=== PATIENT | female | born 1985 | race Caucasian/White ===

== ENCOUNTER 2023-06-15 14:53 | Emergency (ER) | payer MEDICAID ==
[~2023-06-15] VITALS: Ht 152.4 cm; Wt 72.6 kg
[2023-06-15 15:50] LABS: URINE HCG NEGATIVE (NEG)
[2023-06-15 15:51] LABS: BILIRUBIN,URINE SMALL (Neg); CLARITY,URINE CLOUDY (Clear); COLOR,URINE YELLOW (Yellow); GLUCOSE, URINE NEGATIVE (Neg); KETONES,URINE >=80 mg/dl (Neg); LEUKOCYTE ESTERASE ,URINE MODERATE (Neg); NITRITES, URINE NEGATIVE (Neg); OCCULT BLOOD,URINE NEGATIVE (Neg); PH,URINE 6.5 (4.8-8.0); PROTEIN,URINE NEGATIVE (Neg)
[2023-06-15 15:53] LABS: UA COLLECTION TYPE CLN CATCH MIDSTREAM
[2023-06-15 16:02] LABS: URINE AMPHETAMINE SCREEN NEGATIVE (Neg); URINE BARBITUATE SCREEN NEGATIVE (Neg); URINE BENZODIAZEPINES SCREEN NEGATIVE (Neg); URINE CANNABINOID SCREEN NEGATIVE (Neg); URINE COCAINE SCREEN NEGATIVE (Neg); URINE METHADONE SCREEN NEGATIVE (Neg); URINE OPIATE SCREEN NEGATIVE (Neg); URINE PHENCYCLIDINE SCREEN NEGATIVE (Neg)
[2023-06-15 16:05] LABS: SQUAMOUS EPITHELIAL CELL,UR MANY /LPF (FEW)
[2023-06-15 16:06] LABS: MUCUS STRANDS MODERATE /LPF (Neg)
[2023-06-15 16:08] LABS: BACTERIA,URINE 1+ /HPF (Neg); RBC,URINE 0-2 /HPF (0-2)
[2023-06-15 16:10] LABS: YEAST FEW /HPF (NEGATIVE)
[2023-06-15 16:23] LABS: BASOPHILS # (AUTO) 0.1 X10'3 (0-0.2); BASOPHILS % (AUTO) 1.2 % (0-1); EOSINOPHILS # (AUTO) 0.1 X10'3 (0-0.9); EOSINOPHILS % (AUTO) 0.6 % (0-6); HEMATOCRIT 45.2 % (35.0-45.0); HEMOGLOBIN 15.5 g/dl (12.0-16.0); LYMPHOCYTES # (AUTO) 1.9 X10'3 (1.1-4.8); LYMPHOCYTES % (AUTO) 18.7 % (21-51); MEAN CORPUSCULAR HEMOGLOBIN 32.1 PG (27.0-31.0); MEAN CORPUSCULAR HGB CONC 34.2 g/dL (33.0-36.5); MEAN CORPUSCULAR VOLUME 93.7 FL (78-98); MEAN PLATELET VOLUME 7.8 FL (7.4-10.4); MONOCYTES # (AUTO) 0.7 X10'3 (0-0.9); MONOCYTES % (AUTO) 6.5 % (2-12); NEUTROPHILS # (AUTO) 7.5 X10'3 (1.8-7.7); PLATELET COUNT 319 X10'3 (140-440); RED BLOOD COUNT 4.83 X10'6 (4.20-5.60); RED CELL DISTRIBUTION WIDTH 13.1 % (11.5-14.5); WHITE BLOOD COUNT 10.3 X10'3 (4.5-11.0)
[2023-06-15 16:46] LABS: ALBUMIN 4.1 G/DL (3.4-5.0); ANION GAP 10 (8-16); BLOOD UREA NITROGEN 9 MG/DL (7-18); BUN/CREATININE RATIO 11.7 (10.0-20.0); CHLORIDE 104 MMOL/L (99-107); CREATININE 0.77 MG/DL (0.40-0.90); ETHANOL < 10 MG/DL (<10); FREE T4 (FREE THYROXINE) 1.14 NG/DL (0.73-1.40); GLUCOSE 85 MG/DL (70-104); POTASSIUM 3.9 MMOL/L (3.5-5.1); SODIUM 139 MMOL/L (135-145); THYROID STIMULATING HORMONE 4.69 ulU/ml (0.34-4.50); TOTAL CARBON DIOXIDE 24.6 MMOL/L (24-32); eCRCL 70 ML/MIN; eGFR 83 ML/MIN
[2023-06-15 16:57] LABS: ACETAMINOPHEN < 2.0 UG/ML (10-30)
[2023-06-15] MEDS: hydrOXYzine 25 MG tablet PO ONE (19:37)
[2023-06-15] MEDS: CefTRIAXone 1000mg IM Kit (w/lidocaine diluent) IM ONE (20:23)
[2023-06-15 20:25] VITALS: BP 126/83; PULSE 82; RESP 16; TEMP 98.7; O2SAT 98
== END 2023-06-15 20:29 | disposition home or self-care (01) ==
LOC: ER 14:54
DX: R45.851 Suicidal ideations (principal); Z20.822 Contact with and (suspected) exposure to COVID-19; Z88.0 Allergy status to penicillin
CPT/HCPCS: 36415; 80048; 80305; 80320; 80329; 81001; 81025; 84439; 84443; 85025; 87811; 99291; Q0177; 99285

== ENCOUNTER 2023-06-16 09:50 | Emergency (ER) | payer MEDICAID ==
[~2023-06-16] VITALS: Ht 152.4 cm; Wt 72.8 kg
[2023-06-16 10:06] VITALS: TEMP 98.4
[2023-06-16] MEDS ORDERED: diphenhydrAMINE 50 mg/ml inj IM ONE (10:20)
[2023-06-16] MEDS ORDERED: LORazepam 1 MG tablet PO ONE (10:20)
[2023-06-16] MEDS: LORazepam 2 mg/ml vial IM ONE (10:58)
[2023-06-16 13:06] VITALS: BP 120/74; PULSE 69; RESP 18; O2SAT 100
== END 2023-06-16 13:16 | disposition home or self-care (01) ==
LOC: ER 09:51
DX: F41.9 Anxiety disorder, unspecified (principal); F41.0 Panic disorder [episodic paroxysmal anxiety]
CPT/HCPCS: 96372; 99283; J2060

== ENCOUNTER 2023-06-18 15:50 | Emergency (ER) | payer MEDICAID ==
[~2023-06-18] VITALS: Ht 152.4 cm; Wt 73.8 kg
[2023-06-18 16:01] VITALS: BP 131/93; PULSE 94; TEMP 98.6; O2SAT 97
[2023-06-18 16:40] LABS: BASOPHILS % (AUTO) 0.2 % (0-1); EOSINOPHILS % (AUTO) 0.3 % (0-6); HEMATOCRIT 44.3 % (35.0-45.0); LYMPHOCYTES # (AUTO) 1.1 X10'3 (1.1-4.8); LYMPHOCYTES % (AUTO) 9.5 % (21-51); MEAN CORPUSCULAR HEMOGLOBIN 31.8 PG (27.0-31.0); MEAN CORPUSCULAR HGB CONC 33.8 g/dL (33.0-36.5); MEAN CORPUSCULAR VOLUME 94.1 FL (78-98); MEAN PLATELET VOLUME 7.9 FL (7.4-10.4); MONOCYTES # (AUTO) 0.6 X10'3 (0-0.9); MONOCYTES % (AUTO) 4.9 % (2-12); NEUTROPHILS # (AUTO) 10.1 X10'3 (1.8-7.7); NEUTROPHILS % (AUTO) 85.1 % (42-75); PLATELET COUNT 332 X10'3 (140-440); RED BLOOD COUNT 4.71 X10'6 (4.20-5.60); RED CELL DISTRIBUTION WIDTH 13.2 % (11.5-14.5); WHITE BLOOD COUNT 11.9 X10'3 (4.5-11.0)
[2023-06-18 16:42] LABS: BILIRUBIN,URINE NEGATIVE (Neg); CLARITY,URINE SLIGHTLY CLOUDY (Clear); COLOR,URINE YELLOW (Yellow); GLUCOSE, URINE NEGATIVE (Neg); KETONES,URINE TRACE mg/dl (Neg); LEUKOCYTE ESTERASE ,URINE SMALL (Neg); NITRITES, URINE NEGATIVE (Neg); OCCULT BLOOD,URINE NEGATIVE (Neg); PROTEIN,URINE NEGATIVE (Neg); UROBILINOGEN,URINE 0.2 E.U/dL (0.2-1.0)
[2023-06-18 16:43] LABS: URINE HCG NEGATIVE (NEG)
[2023-06-18 16:45] LABS: UA COLLECTION TYPE NON-SPECIFIED
[2023-06-18 16:48] LABS: SQUAMOUS EPITHELIAL CELL,UR MANY /LPF (FEW)
[2023-06-18 16:53] LABS: BACTERIA,URINE 1+ /HPF (Neg); RBC,URINE NONE SEEN /HPF (0-2)
[2023-06-18 16:58] LABS: ALBUMIN 3.8 G/DL (3.4-5.0); ANION GAP 11 (8-16); BLOOD UREA NITROGEN 10 MG/DL (7-18); BUN/CREATININE RATIO 11.5 (10.0-20.0); CALCIUM 9.1 MG/DL (8.5-10.1); CHLORIDE 107 MMOL/L (99-107); CREATININE 0.87 MG/DL (0.40-0.90); ETHANOL < 10 MG/DL (<10); GLUCOSE 108 MG/DL (70-104); POTASSIUM 3.9 MMOL/L (3.5-5.1); SODIUM 141 MMOL/L (135-145); TOTAL CARBON DIOXIDE 22.7 MMOL/L (24-32); eCRCL 62 ML/MIN; eGFR 72 ML/MIN
[2023-06-18 17:21] LABS: URINE AMPHETAMINE SCREEN NEGATIVE (Neg); URINE BARBITUATE SCREEN NEGATIVE (Neg); URINE BENZODIAZEPINES SCREEN NEGATIVE (Neg); URINE CANNABINOID SCREEN NEGATIVE (Neg); URINE COCAINE SCREEN NEGATIVE (Neg); URINE METHADONE SCREEN NEGATIVE (Neg); URINE OPIATE SCREEN NEGATIVE (Neg); URINE PHENCYCLIDINE SCREEN NEGATIVE (Neg)
[2023-06-18 17:38] VITALS: RESP 18
[2023-06-18 17:49] LABS: SALICYLATE 0.4 MG/DL (4.0-20.0)
[2023-06-18 17:55] LABS: ACETAMINOPHEN < 2.0 UG/ML (10-30)
[2023-06-18] MEDS: cephalexin 500mg capsule PO ONE (17:55)
[2023-06-18] MEDS: LORazepam 1 MG tablet PO ONE (20:34)
== END 2023-06-18 20:40 | disposition home or self-care (01) ==
LOC: ER 15:51
DX: R45.851 Suicidal ideations (principal); Z20.822 Contact with and (suspected) exposure to COVID-19; F41.9 Anxiety disorder, unspecified; N39.0 Urinary tract infection, site not specified; F41.0 Panic disorder [episodic paroxysmal anxiety]; Z88.0 Allergy status to penicillin
CPT/HCPCS: 36415; 80048; 80305; 80320; 80329; 81001; 81025; 85025; 87811; 99285

== ENCOUNTER 2023-07-15 13:59 | Emergency (ER) | payer MEDICAID ==
[~2023-07-15] VITALS: Ht 152.4 cm; Wt 72.8 kg
[2023-07-15 14:20] VITALS: TEMP 97.8
[2023-07-15 15:41] LABS: BASOPHILS % (AUTO) 0.4 % (0-1); EOSINOPHILS # (AUTO) 0.1 X10'3 (0-0.9); EOSINOPHILS % (AUTO) 0.5 % (0-6); HEMATOCRIT 43.7 % (35.0-45.0); HEMOGLOBIN 15.1 g/dl (12.0-16.0); LYMPHOCYTES % (AUTO) 9.1 % (21-51); MEAN CORPUSCULAR HEMOGLOBIN 32.5 PG (27.0-31.0); MEAN CORPUSCULAR HGB CONC 34.5 g/dL (33.0-36.5); MEAN CORPUSCULAR VOLUME 94.2 FL (78-98); MEAN PLATELET VOLUME 7.9 FL (7.4-10.4); MONOCYTES # (AUTO) 0.6 X10'3 (0-0.9); MONOCYTES % (AUTO) 5.9 % (2-12); NEUTROPHILS # (AUTO) 9.2 X10'3 (1.8-7.7); NEUTROPHILS % (AUTO) 84.1 % (42-75); PLATELET COUNT 319 X10'3 (140-440); RED BLOOD COUNT 4.64 X10'6 (4.20-5.60); RED CELL DISTRIBUTION WIDTH 12.8 % (11.5-14.5); WHITE BLOOD COUNT 10.9 X10'3 (4.5-11.0)
[2023-07-15 16:00] LABS: ALBUMIN 3.9 G/DL (3.4-5.0); ANION GAP 11 (8-16); BLOOD UREA NITROGEN 8 MG/DL (7-18); BUN/CREATININE RATIO 11.6 (10.0-20.0); CALCIUM 9.4 MG/DL (8.5-10.1); CHLORIDE 104 MMOL/L (99-107); CREATININE 0.69 MG/DL (0.40-0.90); ETHANOL < 10 MG/DL (<10); GLUCOSE 93 MG/DL (70-104); POTASSIUM 4.2 MMOL/L (3.5-5.1); SALICYLATE 0.9 MG/DL (4.0-20.0); SODIUM 139 MMOL/L (135-145); TOTAL CARBON DIOXIDE 23.6 MMOL/L (24-32); eCRCL 78 ML/MIN; eGFR > 90 ML/MIN
[2023-07-15 16:12] LABS: ACETAMINOPHEN < 2.0 UG/ML (10-30)
[2023-07-15 16:30] LABS: URINE HCG NEGATIVE (NEG)
[2023-07-15 16:35] LABS: URINE AMPHETAMINE SCREEN NEGATIVE (Neg); URINE BARBITUATE SCREEN NEGATIVE (Neg); URINE BENZODIAZEPINES SCREEN NEGATIVE (Neg); URINE CANNABINOID SCREEN NEGATIVE (Neg); URINE COCAINE SCREEN NEGATIVE (Neg); URINE METHADONE SCREEN NEGATIVE (Neg); URINE OPIATE SCREEN NEGATIVE (Neg); URINE PHENCYCLIDINE SCREEN NEGATIVE (Neg)
[2023-07-15 17:22] LABS: BILIRUBIN,URINE NEGATIVE (Neg); CLARITY,URINE CLEAR (Clear); COLOR,URINE YELLOW (Yellow); GLUCOSE, URINE NEGATIVE (Neg); KETONES,URINE 15 mg/dl (Neg); LEUKOCYTE ESTERASE ,URINE NEGATIVE (Neg); NITRITES, URINE NEGATIVE (Neg); OCCULT BLOOD,URINE NEGATIVE (Neg); PH,URINE 6.5 (4.8-8.0); PROTEIN,URINE NEGATIVE (Neg); UROBILINOGEN,URINE 0.2 E.U/dL (0.2-1.0)
[2023-07-15 17:23] LABS: UA COLLECTION TYPE CLN CATCH MIDSTREAM
[2023-07-15 18:11] VITALS: BP 108/77; PULSE 77; RESP 16; O2SAT 98
== END 2023-07-15 18:16 | disposition home or self-care (01) ==
LOC: ER 13:59
DX: F41.9 Anxiety disorder, unspecified (principal); Z20.822 Contact with and (suspected) exposure to COVID-19; Z88.0 Allergy status to penicillin
CPT/HCPCS: 36415; 80048; 80305; 80320; 80329; 81003; 81025; 85025; 87811; 99284